=== PATIENT | male | born 1960 | race Two or more races ===

== ENCOUNTER 2025-03-23 06:00 | Emergency (ER) | payer MEDICARE, SELFPAY ==
[2025-03-23 06:01] VITALS: BMI 32.0
[2025-03-23 06:23] VITALS: BP 151/81; PULSE 71; RESP 18; TEMP 36.8; O2SAT 96
--- NOTE | 2025-03-23 06:53 | EDNOTE_ITS ---
ED Male Genitalurinary RME/HPI General Chief complaint: Urogenital-Male Stated complaint: NEEDS MNEON REMOVED Time Seen by Provider: 03/23/25 06:52 Source: patient Arrival date/time: 03/23/25 06:00 64-year-old male with a history of BPH presents to the emergency room with a chief complaint of wanting to get his Menon catheter removed. Mode of arrival: ambulatory Limitations: no limitations Related Data Allergies Allergy/AdvReac Type Severity Reaction Status Date / Time No Known Allergies Allergy Verified 03/23/25 06:01 Review of Systems Review of Systems Systems Reviewed: All systems reviewed, normal except as documented Constitutional Constitutional: Reports system reviewed and no additional complaints, except as documented, Denies fatigue, Denies fever(s), Denies headache(s) and Denies weakness Eyes Eyes: Reports system reviewed and no additional complaints, except as documented, Denies blurry vision and Denies change in vision ENT Ears, Nose, Mouth, and Throat: Reports system reviewed and no additional complaints, except as documented, Denies otalgia, Denies headache(s), Denies nasal congestion, Denies throat swelling and Denies vertigo Cardiovascular Cardiovascular: Reports system reviewed and no additional complaints, except as documented, Denies chest pain, Denies dyspnea and Denies dyspnea on exertion Respiratory Respiratory: Reports system reviewed and no additional complaints, except as documented, Denies chest congestion, Denies cough, Denies dyspnea, Denies dyspnea on exertion and Denies wheezing Gastrointestinal Gastrointestinal: Reports system reviewed and no additional complaints, except as documented, Denies abdominal pain, Denies cramping, Denies nausea and Denies vomiting Genitourinary Genitourinary: Reports system reviewed and no additional complaints, except as documented, Reports difficulty urinating, Denies dysuria and Denies hematuria Musculoskeletal Musculoskeletal: Reports system reviewed and no additional complaints, except as documented and Denies back pain Integumentary/Breasts Skin/Breast: Reports system reviewed and no additional complaints, except as documented and Denies wounds Neurologic Neurologic: Reports system reviewed and no additional complaints, except as documented, Denies confusion, Denies headache(s), Denies lack of coordination, Denies vertigo and Denies weakness Psychiatric Psychiatric: Reports system reviewed and no additional complaints, except as documented, Denies anxiety, Denies confusion, Denies depression, Denies paranoia, Denies suicidal ideation and Denies tactile hallucinations Endocrine Endocrine: Reports system reviewed and no additional complaints, except as documented and Denies fatigue Hematologic/Lymphatic Hematologic/Lymphatic: Reports system reviewed and no additional complaints, except as documented and Denies lymphadenopathy Allergic/Immunologic Allergic/Immunologic: Reports system reviewed and no additional complaints, except as documented, Denies throat swelling, Denies urticaria and Denies wheezing Past Medical History Social History SMOKING STATUS: Never smoker ED Exam General Limitations: Present no limitations General appearance: Present alert and in no apparent distress Head Head exam: Present atraumatic Eye Eye exam: Present normal appearance, PERRL and EOMI ENT ENT exam: Present normal exam, normal oropharynx and mucous membranes moist Neck Neck exam: Present normal inspection, full ROM and trachea midline Chest Chest inspection: Present normal inspection and symmetric chest wall rise Respiratory Respiratory exam: Present normal lung sounds bilaterally Cardiovascular Cardiovascular exam: Present regular rate, normal rhythm and normal heart sounds Abdominal Exam Abdominal exam: Present soft and normal bowel sounds Extremities Exam Extremities exam: Present normal inspection and full ROM Back Exam Back exam: Present normal inspection and full ROM Neurological Exam Neurological exam: Present alert, oriented X3 and CN II-XII intact Psychiatric Psychiatric exam: Present normal affect and normal mood Skin Skin exam: Present warm, dry, intact and normal color Course Quality Measures none Vital Signs Vital signs: Vital Signs Temperature 98.2 F 03/23/25 06:23 Pulse Rate 71 03/23/25 06:23 Respiratory Rate 18 03/23/25 06:23 Blood Pressure 151/81 H 03/23/25 06:23 Pulse Oximetry (%) 96 03/23/25 06:23 Oxygen Delivery Method Room Air 03/23/25 06:23 Urogenital - Male MDM Narrative MDM Narrative:: 64-year-old male with a history of BPH presents to the emergency room with a chief complaint of wanting to get his Menon catheter removed. Patient is hemodynamically stable and in no apparent distress. His Menon catheter is draining and working appropriately. Patient states he wants to get his Menon catheter removed since he is going back to his home in [place]. Patient states the Menon catheter was placed here in [place] due to acute urinary retention secondary to his prostate issues. The patient states he has not seen his urologist and has not seen his primary care provider. Patient states he wants to get the catheter removed as he sees that the catheter is draining and believes his problem is fixed. I educated the patient and told him that the catheter is draining because it is directly in the bladder and bypasses the prostate. I gave the patient education and given the option of removing it and returning if his problem gets worse or keeping it in until he gets to [place]. Patient states that he will be taking his bus all the way to [place] and states he rather be safe and he will remove the catheter when he gets to [place]. The patient was also educated to see his primary care provider as soon as he gets there to get a referral to see his urologist. Patient data External records reviewed:: [facility] [place] previous records Clinical information provided by:: patient Social determinants that could affect healthcare access:: none Patient has the following chronic illnesses:: BPH How is presenting disease/condition affected by chronic disease/condition?: caused by Evaluation data The following diagnostics were reviewed and interpreted by me:: lab results and radiology exam(s) Lab and/or radiology exams considered but not ordered:: Labs and radiology exams considered and ordered Interpretation Summary: N/A Medications / Prescriptions Medications or Prescriptions considered but not ordered:: No medication given Medication administrations:: No medication given Consultations Consultation(s) initiated? (list below): No Diagnosis Urogenital Male Differential Diagnosis: acute retention of urine and other (Encounter for Menon catheter removal) Most likely diagnosis given after review of the tests above:: Acute retention of urine Admission Indicated Admission indicated?: not indicated Admission Request Was there a request for admission?: No Disposition Plan Disposition Plan: Discharge Discharge Attestation Discharge Attestation: The patient and all family members were given an opportunity to ask questions and understood the discharge instructions. Discharge instructions specifically effects, indications for sooner follow up or return to the emergency department, and the expected course of current diagnosis. Patient condition: Stable Discharge Plan Plan Patient Disposition: HOME (Self Care) Discharge Disposition comment: Stable Problem List Clinical Impression: Acute retention of urine Patient/Caregiver Discharge Instructions Education Materials: ED Urinary Retention, Male Additional Instructions: Please follow-up with your primary care provider in the next 24 to 48 hours. Please see your urologist. For any evidence of worsening signs or symptoms return to the emergency room immediately Print Language: Estonian Stand Alone Forms: Meagan Award Info., Patient Portal Info Letter MAGDIEL/JAK Supervising Physician MAGDIEL/JAK Supervising Physician: Dr. Lovelace
== END 2025-03-23 07:38 | disposition home or self-care (01) ==
LOC: SERX 07:04
PROVIDERS: Emergency Provider Family Medicine
DX: N40.1 Benign prostatic hyperplasia with lower urinary tract symptoms (principal); R33.8 Other retention of urine
CPT/HCPCS: 99282